=== PATIENT | male | born 1985 | race Caucasian/White ===

== ENCOUNTER 2018-02-17 14:13 | Emergency (ER) | payer MEDICAID ==
[~2018-02-17] VITALS: Ht 180.3 cm; Wt 68.0 kg
[2018-02-17 14:30] VITALS: BP 137/70
== END 2018-02-17 14:34 | disposition home or self-care (01) ==
LOC: EDBD 14:13 → ER 14:16
DX: R07.89 Other chest pain (principal); F41.9 Anxiety disorder, unspecified
CPT/HCPCS: 93005

== ENCOUNTER 2018-05-22 16:55 | Emergency (ER) | payer MEDICAID ==
[~2018-05-22] VITALS: Ht 167.6 cm; Wt 68.0 kg
[2018-05-22 17:07] VITALS: BP 117/74
[2018-05-22 18:24] LABS: Basophils # (auto) 0 uL; Basophils % (auto) 0.4 % (0.0-2.0); Eosinophils # (auto) 0.1 uL; Eosinophils % (auto) 0.9 % (0.0-7.0); Hematocrit 41.4 % (41.0-53.0); Lymphocytes # (auto) 1.4 uL; Lymphocytes % (auto) 23.4 % (10.0-50.0); Mean Corpuscular Hemoglobin 32.4 pg (28.0-32.0); Mean Corpuscular Hgb Conc. 33.9 g/dL (32.0-36.0); Mean Corpuscular Volume 95.7 fL (80.0-100.0); Monocytes # (auto) 0.5 uL; Monocytes % (auto) 7.8 % (0.0-12.0); Neutrophils # (auto) 3.9 uL; Neutrophils % (auto) 67.5 % (37.0-80.0); Nucleated Red Blood Cells % 0.1 %; Platelet Count (auto) 223 10^3/uL (140-450); Red Blood Cells 4.33 10^6/uL (4.5-5.90); Red Cell Distribution Width 13.2 % (11.8-14.3); White Blood Cell 5.8 10^3/uL (4.4-10.8)
[2018-05-22 18:35] LABS: Albumin 4.4 g/dL (3.4-5.0); Calcium 9.1 mg/dL (8.5-10.1); Potassium 3.7 mmol/L (3.5-5.1)
[2018-05-22 18:38] LABS: BUN/Creatinine Ratio 20.6
[2018-05-22 18:40] LABS: Bilirubin, Total 0.6 mg/dL (0.2-1.0); Total Protein 7.2 g/dL (6.4-8.2)
== END 2018-05-22 20:52 | disposition left against medical advice (07) ==
LOC: EDBD 16:55 → ER 16:55 → EDUNIT# 16:55 → ER 20:52
DX: R10.31 Right lower quadrant pain (principal); Z53.21 Procedure and treatment not carried out due to patient leaving prior to being seen by health care provider
CPT/HCPCS: 36415; 74176; 80053; 82150; 83690; 85025